=== PATIENT | male | born 1940 | race Caucasian/White ===

== ENCOUNTER → 2018-10-04 09:19 | Outpatient (CLI) | payer MEDICARE, SELFPAY ==
--- NOTE | 2018-10-04 09:31 | XR_ITS ---
XR hip LT 2-3V w/pelvis HISTORY: Left-sided pain ITS.REASON: LOW BACK PAIN ORDERING PHYSICIAN: Lizette Jimenez PATIENT AGE: 78 years COMPARISON: None FINDINGS: There are mild osteoarthritic changes of the hips on both sides with some decrease in the joint space, osteophyte formation, and mild subarticular cystic changes along the acetabular roof. No fracture or dislocation. No lytic or blastic change. IMPRESSION: Mild osteoarthritis of the hips
--- NOTE | 2018-10-04 09:31 | XR_ITS ---
EXAM: XR lumbar spine 2-3V HISTORY: ITS.REASON: LOW BACK PAIN ORDERING PHYSICIAN: Lizette Jimenez PATIENT AGE: 78 years COMPARISON: None FINDINGS: There is minimal lumbar scoliosis convex right. There is mild degenerative disc disease from L1 to S1 with mildly prominent anterior osteophytes. No fracture or dislocation. Mild facet hypertrophic changes are present at L4-L5 and S1. Calcification noted over the mid aspect of the left kidney. This is nonspecific not quite as focal as what one would expect for nephrolithiasis. Partially calcified renal mass is a consideration. CT of the kidneys without and with contrast may be of further value. IMPRESSION: 1. Degenerative changes of the lumbar spine. 2. Nonspecific calcification of the mid aspect of the left kidney which may be better evaluate with CT of the kidneys without contrast
== END ==
PROVIDERS: PCP Nurse Practitioner Family; Visit Provider Nurse Practitioner Family
DX: M54.5 Low back pain (principal); M25.552 Pain in left hip
CPT/HCPCS: 72100; 73502

== ENCOUNTER → 2018-10-25 12:59 | Outpatient (CLI) | payer MEDICARE, SELFPAY ==
[2018-10-25 14:08] LABS: Blood Urea Nitrogen 21 mg/dL (7-18); Creatinine,Serum 1.23 mg/dL (0.70-1.30); Estimated Glomerular Filt Rate 57 ml/min (>60); GFR (African American) 69 ML/MIN (>60)
== END ==
PROVIDERS: Visit Provider Nurse Practitioner Family
DX: Z01.818 Encounter for other preprocedural examination (principal)
CPT/HCPCS: 36415; 82565; 84520

== ENCOUNTER → 2018-10-26 10:11 | Outpatient (CLI) | payer MEDICARE, SELFPAY ==
--- NOTE | 2018-10-26 10:16 | CT_ITS ---
CT abdomen w con CLINICAL INDICATION: ITS.REASON: LT KIDNEY NEOPLASM possible calcific mass of the left kidney ORDERING PHYSICIAN: Lizette Jimenez PATIENT AGE: 78 years COMPARISON: 10/04/2018 TECHNIQUE: Axial images obtained with sagittal and coronal reformats. All CT scans at the facility use one or more dose reduction, viz: automated exposure control, ma/kV adjustment per patient size (including targeted exams where dose is matched to indication, i.e. head), or iterative reconstruction technique. PROCEDURE: Oral Contrast: None IV Contrast: 75 mL's Optiray 350. FINDINGS: 3 phase imaging performed of the kidneys following contrast enhancement. Lower thorax: No acute finding The liver, spleen, adrenal glands, and pancreas have an unremarkable appearance. On the recent plain film of the lumbar spine there is a question of a calcific lesion of the left kidney. No renal mass or calculi is evident. The density noted on the radiograph may have been due to overlying artifact There is fusion of the SI joints and there are prominent hypertrophic changes of the lower thoracic and lumbar spine. No acute bony anomalies. There is a small focal hernia which contains fat. IMPRESSION: Essentially negative CT of the abdomen with 3 phase imaging of the kidneys. No renal mass or calcification/stone apparent.
--- NOTE | 2018-10-26 10:54 | HMH.ITSHM ---
Current Home Medications as stated by this patient Emmanuel Guerrero or compliance representative dealer. []IRBESARTIN,METOPROLOL
== END ==
PROVIDERS: PCP Nurse Practitioner Family; Visit Provider Nurse Practitioner Family
DX: D41.02 Neoplasm of uncertain behavior of left kidney (principal)
CPT/HCPCS: 74160; Q9967

== ENCOUNTER 2018-11-07 09:00 | Outpatient (RCR) | payer MEDICARE, SELFPAY | END 2018-11-07 09:05 | disposition home or self-care (01) | LOC: PT 09:00 | PROVIDERS: Visit Provider Nurse Practitioner Family | DX: M54.5 Low back pain (principal) | CPT/HCPCS: 97010; 97012; 97014; 97110; 97163; G0283 ==

== ENCOUNTER → 2020-09-15 14:41 | Outpatient (CLI) | payer OTHER, SELFPAY ==
--- NOTE | 2020-09-15 14:52 | XR_ITS ---
PROCEDURE: XR LUMBAR SPINE MIN 4V CLINICAL INDICATION: LUMBAGO W/ RT SCIATICA COMPARISON: CR SPLUMBLM XR lumbar spine 2-3V from 10/04/2018 FINDINGS: Mild lumbar scoliosis convex right. There is degenerative disc disease from L1-S1 worse at the L3-L4 level. There are bridging osteophytes anteriorly at T12-L1 L1-L2 L2-L3 and L4-5. Small posterior osteophyte noted at L3-L4. There are facet arthritic changes at L4-L5 and S1. No fracture or dislocation. No lytic or blastic change. There is some mild SI joint sclerosis in the mid aspect on both sides. There is overall no significant change compared to 10/04/2018. Other findings:None. IMPRESSION: Degenerative changes as described above. Dictated by: Praful Carrasco MD 09/15/2020 15:21 Praful Carrasco MD in [place] 09/15/2020 15:21
== END ==
PROVIDERS: PCP Internal Medicine; Visit Provider Internal Medicine
DX: M54.41 Lumbago with sciatica, right side (principal)
CPT/HCPCS: 72110

== ENCOUNTER → 2021-10-07 13:55 | Outpatient (CLI) | payer MEDICARE, SELFPAY ==
[2021-10-07 15:42] LABS: Alanine Aminotransferase 24 U/L (12-78); Albumin Level 4.2 g/dl (3.5-5.0); Albumin/Globulin Ratio 1.7 (1.1-1.8); Alkaline Phosphatase 110 U/L (38-126); Anion Gap 10.4 mEq/L (5-15); Aspartate Amino Transferase 37 U/L (17-59); Bilirubin,Total 0.7 mg/dl (0.2-1.3); Blood Urea Nitrogen 29 mg/dl (9-20); Carbon Dioxide 29 mmol/L (22.0-30.0); Chloride 104 mmol/L (98-107); Cholesterol 187 mg/dl (140-200); Estimated Glomerular Filt Rate 58 ml/min (>60); GFR (African American) 70 ML/MIN (>60); Globulin 2.5 g/dL (1.3-3.2); Glucose 85 mg/dl (74-100); HDL Cholesterol 31 mg/dl (40-60); Potassium 4.4 mmoL/L (3.5-5.1); Sodium 139 mmol/L (136-145); Total Protein,Serum 6.7 g/dl (6.3-8.2); Triglycerides 131 mg/dl (30-150); VLDL Cholesterol 26 mg/dL (0-40)
[2021-10-07 16:12] LABS: Prostate Specific Ag Screen 1.7 ng/ml (0.0-4.0)
== END ==
PROVIDERS: PCP Internal Medicine; Visit Provider Internal Medicine
DX: I10 Essential (primary) hypertension (principal); Z12.5 Encounter for screening for malignant neoplasm of prostate; E78.5 Hyperlipidemia, unspecified; R53.83 Other fatigue; N40.1 Benign prostatic hyperplasia with lower urinary tract symptoms
CPT/HCPCS: 80053; 80061; G0103

== ENCOUNTER → 2022-03-15 13:26 | Outpatient (CLI) | payer MEDICARE, SELFPAY ==
[2022-03-15 14:23] LABS: Basophils # 0.1 K/mm3 (0-0.2); Basophils % 1.4 % (0.1-2.0); Eosinophils # 0.1 K/mm3 (0.0-0.4); Eosinophils % 1.7 % (0.1-12.0); Hematocrit 39.7 % (42.0-52.0); Lymphocytes # 1.5 K/mm3 (0.7-4.5); Mean Corpuscular HGB Conc 32.7 g/dL (31.8-35.4); Mean Corpuscular Hemoglobin 33.4 pg (27.0-31.2); Mean Platelet Volume 11.6 fl (7.4-10.4); Monocytes # 0.4 K/mm3 (0.1-1.0); Monocytes % 6.7 % (1.7-9.3); Neutrophils # 3.2 K/mm3 (1.8-7.8); Neutrophils % 61.3 % (37.0-80.0); Platelet Count 179 K/mm3 (142-424); Red Blood Count 3.89 M/mm3 (4.60-6.20); Red Cell Distribution Width 13.9 % (11.5-17.5); White Blood Count 5.2 K/mm3 (4.8-10.8)
[2022-03-15 15:48] LABS: Erythrocyte Sedimentation Rate 31 mm/hr (0-20)
[2022-03-15 16:15] LABS: Alanine Aminotransferase 29 U/L (12-78); Albumin Level 4.1 g/dl (3.5-5.0); Albumin/Globulin Ratio 1.5 (1.1-1.8); Alkaline Phosphatase 133 U/L (38-126); Anion Gap 11.5 mEq/L (5-15); Aspartate Amino Transferase 43 U/L (17-59); Bilirubin,Total 0.6 mg/dl (0.2-1.3); Blood Urea Nitrogen 27 mg/dl (9-20); Carbon Dioxide 25 mmol/L (22.0-30.0); Chloride 106 mmol/L (98-107); Chol/HDL Ratio 4.9 (1-3.5); Cholesterol 173 mg/dl (140-200); Estimated Glomerular Filt Rate 53 ml/min (>60); GFR (African American) 64 ML/MIN (>60); Globulin 2.7 g/dL (1.3-3.2); Glucose 91 mg/dl (74-100); HDL Cholesterol 35 mg/dl (40-60); Potassium 4.5 mmoL/L (3.5-5.1); Sodium 138 mmol/L (136-145); Total Protein,Serum 6.8 g/dl (6.3-8.2); Triglycerides 89 mg/dl (30-150); VLDL Cholesterol 18 mg/dL (0-40)
[2022-03-15 16:45] LABS: Thyroid Stimulating Hormone 2.32 uIU/mL (0.465-4.68)
[2022-03-17 09:43] LABS: Direct LDL Cholesterol 115 mg/dL (100-129)
== END ==
PROVIDERS: PCP Internal Medicine; Visit Provider Internal Medicine
DX: R53.83 Other fatigue (principal); I10 Essential (primary) hypertension; E78.5 Hyperlipidemia, unspecified; M54.41 Lumbago with sciatica, right side
CPT/HCPCS: 80053; 80061; 84443; 85025; 85651

== ENCOUNTER → 2022-03-23 14:10 | Outpatient (CLI) | payer MEDICARE, SELFPAY ==
[2022-03-23 15:21] LABS: Reticulocyte % (Auto) 1.3 % (0.9-3.2)
[2022-03-23 16:35] LABS: Vitamin B12 866 pg/mL (239-931)
[2022-03-23 16:59] LABS: Folate > 20.00 ng/mL
== END ==
PROVIDERS: PCP Internal Medicine; Visit Provider Internal Medicine
DX: D75.89 Other specified diseases of blood and blood-forming organs (principal)
CPT/HCPCS: 82607; 82746; 85044

== ENCOUNTER → 2022-09-14 10:54 | Outpatient (CLI) | payer MEDICARE, SELFPAY ==
[2022-09-14 11:51] LABS: Basophils # 0.1 K/mm3 (0-0.2); Basophils % 1.1 % (0.1-2.0); Eosinophils # 0.1 K/mm3 (0.0-0.4); Eosinophils % 2.3 % (0.1-12.0); Hematocrit 42.3 % (42.0-52.0); Hemoglobin 13.6 g/dL (14.1-18.0); Lymphocytes # 1.7 K/mm3 (0.7-4.5); Lymphocytes % 29.2 % (10-50); Mean Corpuscular HGB Conc 32.2 g/dL (31.8-35.4); Mean Corpuscular Hemoglobin 31.7 pg (27.0-31.2); Mean Corpuscular Volume 98.4 fl (80-94); Mean Platelet Volume 9.8 fl (7.4-10.4); Monocytes # 0.4 K/mm3 (0.1-1.0); Monocytes % 6.4 % (1.7-9.3); Neutrophils # 3.5 K/mm3 (1.8-7.8); Neutrophils % 61.1 % (37.0-80.0); Platelet Count 191 K/mm3 (142-424); Red Cell Distribution Width 13.9 % (11.5-17.5); White Blood Count 5.7 K/mm3 (4.8-10.8)
[2022-09-14 12:05] LABS: Alanine Aminotransferase 32 U/L (12-78); Albumin Level 4.3 g/dl (3.5-5.0); Albumin/Globulin Ratio 1.6 (1.1-1.8); Alkaline Phosphatase 160 U/L (38-126); Anion Gap 6.9 mEq/L (5-15); Aspartate Amino Transferase 42 U/L (17-59); Bilirubin,Total 0.6 mg/dl (0.2-1.3); Blood Urea Nitrogen 28 mg/dl (9-20); Calcium 8.6 mg/dl (8.4-10.2); Carbon Dioxide 29 mmol/L (22.0-30.0); Chloride 108 mmol/L (98-107); Estimated Glomerular Filt Rate 48 ml/min (>60); GFR (African American) 59 ML/MIN (>60); Globulin 2.7 g/dL (1.3-3.2); Glucose 88 mg/dl (74-100); Potassium 4.9 mmoL/L (3.5-5.1); Sodium 139 mmol/L (136-145)
== END ==
PROVIDERS: PCP Internal Medicine; Visit Provider Internal Medicine
DX: I10 Essential (primary) hypertension (principal); E78.5 Hyperlipidemia, unspecified; F41.9 Anxiety disorder, unspecified; G25.0 Essential tremor
CPT/HCPCS: 80053; 85025

== ENCOUNTER → 2023-03-14 11:06 | Outpatient (CLI) | payer MEDICARE, SELFPAY ==
--- NOTE | 2023-03-14 | CA_ITS ---
FINAL REPORT TECHNIQUE: Multiple transverse and longitudinal images were performed of the right femoral-popliteal deep venous system with augmentation and compression maneuvers. CLINICAL HISTORY: Right groin and thigh pain, bruise on medial prox thigh, 81 mg ASA COMPARISON: None FINDINGS: Right lower extremity duplex ultrasound demonstrates normal flow in the deep venous system. There is no abnormal echogenicity to suggest thrombus. There is normal compression and augmentation. IMPRESSION: No evidence of right DVT. Reviewed, Interpreted and Dictated by Leo Gutierrez MD Transcribed by Dottie Machado Authenticated and . [facility]
--- NOTE | 2023-03-14 11:15 | XR_ITS ---
FINAL REPORT CLINICAL HISTORY: pain in right hip since 03/09/2023 COMPARISON: None FINDINGS: Two views of the right femur were obtained. There is no acute fracture or dislocation. There is moderate narrowing of the right hip joint space. There is subchondral sclerosis. There is mild to moderate osteophyte formation at the hip joint margins. There is no evidence of avascular necrosis. No soft tissue abnormality is seen. IMPRESSION: Moderate hypertrophic changes of osteoarthritis of the right hip asymmetrically greater than on the left. Reviewed, Interpreted and Dictated by Leo Gutierrez MD Transcribed by Dottie Machado Authenticated and [facility]
--- NOTE | 2023-03-14 11:15 | XR_ITS ---
FINAL REPORT CLINICAL HISTORY: RT HIP AND GROIN PAIN COMPARISON: None FINDINGS: RIGHT HIP Two views of the right hip demonstrate no acute fracture or dislocation. There is moderate narrowing of the right hip joint space. There is subchondral sclerosis. There is mild to moderate osteophyte formation at the hip joint margins. There is no evidence of avascular necrosis. No soft tissue abnormality is seen. IMPRESSION: Moderate hypertrophic changes of osteoarthritis of the right hip asymmetrically greater than on the left. Reviewed, Interpreted and Dictated by Leo Gutierrez MD Transcribed by Dottie Machado Authenticated and [facility]
== END ==
PROVIDERS: PCP Internal Medicine; Visit Provider Internal Medicine
DX: M79.604 Pain in right leg (principal); M25.551 Pain in right hip; R10.30 Lower abdominal pain, unspecified
CPT/HCPCS: 73502; 73552; 93971

== ENCOUNTER → 2023-04-08 12:29 | Outpatient (CLI) | payer MEDICARE, SELFPAY ==
[2023-04-08 13:16] LABS: Basophils # 0.1 K/mm3 (0-0.2); Basophils % 0.7 % (0.1-2.0); Eosinophils # 0.1 K/mm3 (0.0-0.4); Hematocrit 44.7 % (42.0-52.0); Hemoglobin 13.9 g/dL (14.1-18.0); Lymphocytes % 30.4 % (10-50); Mean Corpuscular HGB Conc 31.2 g/dL (31.8-35.4); Mean Corpuscular Hemoglobin 31.1 pg (27.0-31.2); Mean Corpuscular Volume 99.8 fl (80-94); Mean Platelet Volume 10.9 fl (7.4-10.4); Monocytes # 0.4 K/mm3 (0.1-1.0); Monocytes % 6.8 % (1.7-9.3); Neutrophils # 3.9 K/mm3 (1.8-7.8); Neutrophils % 60.1 % (37.0-80.0); Platelet Count 168 K/mm3 (142-424); Red Blood Count 4.48 M/mm3 (4.60-6.20); Red Cell Distribution Width 13.5 % (11.5-17.5); White Blood Count 6.5 K/mm3 (4.8-10.8)
[2023-04-08 13:48] LABS: Alanine Aminotransferase 33 U/L (12-78); Albumin Level 4.3 g/dl (3.5-5.0); Albumin/Globulin Ratio 1.4 (1.1-1.8); Alkaline Phosphatase 129 U/L (38-126); Anion Gap 12.9 mEq/L (5-15); Aspartate Amino Transferase 38 U/L (17-59); Bilirubin,Total 0.6 mg/dl (0.2-1.3); Blood Urea Nitrogen 30 mg/dl (9-20); Calcium 9.2 mg/dl (8.4-10.2); Carbon Dioxide 30 mmol/L (22.0-30.0); Chloride 102 mmol/L (98-107); Cholesterol 186 mg/dl (140-200); Estimated Glomerular Filt Rate 48 ml/min (>60); GFR (African American) 58 ML/MIN (>60); Glucose 94 mg/dl (74-100); HDL Cholesterol 31 mg/dl (40-60); Potassium 4.9 mmoL/L (3.5-5.1); Sodium 140 mmol/L (136-145); Total Protein,Serum 7.3 g/dl (6.3-8.2); Triglycerides 166 mg/dl (30-150); VLDL Cholesterol 33 mg/dL (0-40)
[2023-04-08 13:59] LABS: Direct LDL Cholesterol 111.18 mg/dL (100-129)
[2023-04-08 14:19] LABS: Prostate Specific Ag Screen 1.6 ng/ml (0.0-4.0)
== END ==
PROVIDERS: PCP Internal Medicine; Visit Provider Internal Medicine
DX: G25.0 Essential tremor (principal); I10 Essential (primary) hypertension; Z12.5 Encounter for screening for malignant neoplasm of prostate; D75.89 Other specified diseases of blood and blood-forming organs
CPT/HCPCS: 80053; 80061; 85025; G0103

== ENCOUNTER → 2023-04-12 15:09 | Outpatient (CLI) | payer MEDICARE, SELFPAY ==
--- NOTE | 2023-04-12 15:15 | MR_ITS ---
PROCEDURE INFORMATION: Exam: MR Right Lower Extremity Joint Without Contrast; Hip Exam date and time: 04/12/2023 3:43 PM Age: 83 years old Clinical indication: Pain; Hip; Right; Additional info: Hip strain TECHNIQUE: Imaging protocol: Magnetic resonance imaging of the right lower extremity joint without contrast. Exam focused on the hip. Sequences: Coronal and axial large field of view sequences include the pelvis and both the left and right hips. Additional sagittal sequences are focused on the symptomatic hip. COMPARISON: 1. CR XR HIP RT 2-3V W/PELVIS 03/14/2023 11:18 AM 2. CR XR FEMUR RT 2V 03/14/2023 11:[address] abdomen w con 10/26/2018 10:23 AM FINDINGS: Limitations: Motion artifact. Bones/joints: A 0.9 cm crescentic focus of edema involving the subcortical bone of the posterosuperior femoral head with slight flattening of the posterior weightbearing surface suggests a subchondral insufficiency fracture (series 7/image 22). A small focus of osteonecrosis is in the differential diagnosis. There is moderate primary osteoarthritis of the bilateral hip joints. A moderate joint effusion involves the right hip. A mild joint effusion involves the contralateral left hip. Degenerative subchondral cystic changes involve the contralateral left femoral head-neck junction. In the contralateral left femoral head there is a 0.9 cm focus of fluid signal intensity on large [id number] STIR sequences (series 4/image 18, series 3/image 12) that has anteriorly located sclerosis on the large field of view T1 sequence (series 5/images 17-18). A small focus of osteonecrosis is favored. The sacroiliac joints are partially bridged by osteophytes. No evidence of osseous metastatic disease. Labrum: Degenerative tearing involves each hip labrum. TENDONS: Tendons of iliopsoas group: Unremarkable. No evidence of tear. Tendons of medial compartment of thigh: Unremarkable. No evidence of tear. Tendons of lateral rotators of hip: Unremarkable. No evidence of tear. Tendons of gluteal group: High-grade partial-thickness tearing involves the right gluteus minimus tendon. Soft tissues: Multifocal intramuscular feathery increased T2 signal involving the right hip adductor muscles suggests muscle strain (grade I muscle injury). Bowel: A 1.1 cm nodular density abutting the posterior wall of the rectum located approximately 5 cm proximal to the anal verge is indeterminate for stool contents versus a neoplastic nodule. Bladder: Diffuse bladder wall thickening suggests partial bladder outlet obstruction. Reproductive: The prostate is heterogeneously enlarged. IMPRESSION: 1. Subchondral insufficiency fracture versus focus of osteonecrosis involving the posterosuperior right femoral head with prominent surrounding intraosseous edema. If representing osteonecrosis, this would correspond to Ficat and Mira classification stage III. 2. Possible rectal nodule measuring 1.1 cm located 5 cm proximal to the anal verge versus murally adherent stool contents. Additional workup as indicated in a patient of this age. 3. Probable 0.9 cm focus of osteonecrosis in the contralateral left femoral head. 4. Moderate primary osteoarthritis of the bilateral hip joints. 5. Moderate right hip joint effusion. 6. High-grade partial-thickness tear of the right gluteus minimus tendon. 7. Multifocal low-grade muscle strain of the right hip adductor muscles (grade I muscle injuries). 8. Findings suggestive of partial bladder outlet obstruction by the heterogeneously enlarged prostate.
--- NOTE | 2023-04-12 15:15 | MR_ITS ---
PROCEDURE INFORMATION: Exam: MR Lumbar Spine Without Contrast Exam date and time: 04/12/2023 3:43 PM Age: 83 years old Clinical indication: Pain; Sciatica; Right TECHNIQUE: Imaging protocol: Magnetic resonance imaging of the lumbar spine without contrast. COMPARISON: CR XR LUMBAR SPINE MIN 4V 09/15/2020 2:54 PM FINDINGS: Bones/joints: No acute compression fracture is seen. There is minimal dextroconvex curvature of the lumbar spine. Minor retrolisthesis of L2 on L3 and L4 on L5 is also noted. Spinal cord: The conus medullaris terminates at the L1-L2 level. There is no evidence of arachnoiditis or cauda equina compression. L1-L2: No significant disc disease. No significant spinal stenosis or neural foraminal narrowing. L2-L3: There is mild diffuse circumferential disc bulging with a superimposed right foraminal and extraforaminal disc protrusion. Mild facet arthropathy and thickening of the ligamentum flavum is also present. This is causing mild spinal canal stenosis, moderate narrowing of the left subarticular recess, severe narrowing of the right subarticular recess, and moderate/severe bilateral foraminal stenosis. L3-L4: There is moderate diffuse circumferential disc bulging, moderate facet arthropathy, thickening of the ligamentum flavum, and congenitally shortened pedicles. This is causing moderate spinal canal stenosis, severe narrowing of the subarticular recesses, and moderate/severe bilateral foraminal stenosis. L4-L5: There is moderate diffuse circumferential disc bulging, moderate facet arthropathy, and thickening of the ligamentum flavum. This is causing moderate spinal canal stenosis, severe narrowing of the subarticular recesses, moderate right foraminal stenosis, and moderate/severe left foraminal stenosis. L5-S1: There is moderate diffuse circumferential disc bulging and severe facet arthropathy. This is causing moderate spinal canal stenosis, severe narrowing of the subarticular recesses, and moderate/severe bilateral foraminal stenosis. Soft tissues: Mild edema is present in the posterior paraspinous musculature near the lumbosacral junction. Mild subcutaneous edema in the lower back is also noted. IMPRESSION: Marked degenerative changes of the lumbar spine as discussed above
== END ==
PROVIDERS: PCP Internal Medicine; Visit Provider Internal Medicine
DX: M25.551 Pain in right hip (principal); S76.011A Strain of muscle, fascia and tendon of right hip, initial encounter; M54.31 Sciatica, right side; M70.71 Other bursitis of hip, right hip
CPT/HCPCS: 72148; 73721; 76376

== ENCOUNTER 2024-01-03 10:33 | Outpatient (CLI) | payer MEDICARE, SELFPAY ==
[2024-01-03 10:50] LABS: Basophils % 1.1 % (0.1-2.0); Eosinophils % 1.1 % (0.1-12.0); Hematocrit 40.7 % (42.0-52.0); Hemoglobin 13.2 g/dL (14.1-18.0); Lymphocytes # 0.9 K/mm3 (0.7-4.5); Lymphocytes % 22.7 % (10-50); Mean Corpuscular HGB Conc 32.3 g/dL (31.8-35.4); Mean Corpuscular Hemoglobin 32.9 pg (27.0-31.2); Mean Corpuscular Volume 101.6 fl (80-94); Monocytes # 0.3 K/mm3 (0.1-1.0); Neutrophils # 2.7 K/mm3 (1.8-7.8); Neutrophils % 68.2 % (37.0-80.0); Platelet Count 147 K/mm3 (142-424); Red Blood Count 4.01 M/mm3 (4.60-6.20); Red Cell Distribution Width 14.2 % (11.5-17.5); White Blood Count 3.9 K/mm3 (4.8-10.8)
[2024-01-03 11:50] LABS: Chloride 105 mmol/L (98-107); Potassium 4.3 mmoL/L (3.5-5.1); Sodium 139 mmol/L (136-145)
[2024-01-03 11:52] LABS: Alanine Aminotransferase 7 U/L (12-78); Aspartate Amino Transferase 42 U/L (17-59); Blood Urea Nitrogen 28 mg/dl (9-20); Estimated Glomerular Filt Rate 45 ml/min (>60); GFR (African American) 54 ML/MIN (>60)
[2024-01-03 11:53] LABS: Albumin Level 4.2 g/dl (3.5-5.0); Albumin/Globulin Ratio 1.6 (1.1-1.8); Alkaline Phosphatase 164 U/L (38-126); Anion Gap 11.3 mEq/L (5-15); Bilirubin,Total 0.4 mg/dl (0.2-1.3); Calcium 9.5 mg/dl (8.4-10.2); Carbon Dioxide 27 mmol/L (22.0-30.0); Chol/HDL Ratio 5.3 (1-3.5); Cholesterol 164 mg/dl (140-200); Globulin 2.7 g/dL (1.3-3.2); Glucose 96 mg/dl (74-100); HDL Cholesterol 31 mg/dl (40-60); Total Protein,Serum 6.9 g/dl (6.3-8.2); Triglycerides 128 mg/dl (30-150); VLDL Cholesterol 26 mg/dL (0-40)
== END 2024-01-03 23:59 | disposition home or self-care (01) ==
LOC: LAB.DROPOF 10:33
PROVIDERS: PCP Internal Medicine; Visit Provider Internal Medicine
DX: E78.5 Hyperlipidemia, unspecified (principal); I10 Essential (primary) hypertension; R74.8 Abnormal levels of other serum enzymes; R25.1 Tremor, unspecified
CPT/HCPCS: 80053; 80061; 85025

== ENCOUNTER 2024-04-27 13:21 | Outpatient (POV) | payer MEDICARE, SELFPAY ==
[2024-04-27 13:40] VITALS: BP 144/75; PULSE 79; RESP 18; TEMP 36.8; O2SAT 98; BMI 24.3
--- NOTE | 2024-04-27 15:42 | A.OFFVIS_ITS ---
HPI Data of Consult Patient: new to practice Consult date: 04/27/24 Requesting Physician: Garth Wray MD Primary Care Provider: Santos Westbrook MD Consult Narrative Reason for consult: Postherpetic neuralgia and postherpetic polyneuropathy History of present illness: Mr. Guerrero is a 84 year old male who developed a shingles rash approximately 6 weeks ago. 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 CC: Garth Wray MD [facility] Disclaimer: The information contained in this section may have been updated after the patient was seen, as this information can be updated by other users. Medical History Tremor High blood pressure Family History Other Arthritis Social History (Updated 04/27/24 @ 13:41 by Mary Dukes RN) Smoking Status: Never smoker alcohol intake: never substance use type: denies use current occupational status: retired Travel in the last 8 weeks: None household members: spouse housing: house marital status: Review of Systems Review of Systems Review of systems:: pertinent systems reviewed and negative unless documented below Meds Home Medications and Allergies Home Medications ?Medication ?Instructions ?Recorded ?Confirmed ?Type aspirin 81 mg tablet,delayed 81 mg PO DAILY 11/15/22 04/27/24 History release (Adult Low Dose Aspirin) cholecalciferol (vitamin D3) 50 50 mcg PO DAILY 11/15/22 04/27/24 History mcg (2,000 unit) capsule multivitamin (Daily Multi-Vitamin 1 tab PO DAILY 11/15/22 04/27/24 History tablet) zinc acetate 50 mg (zinc) capsule 50 mg PO DAILY 11/15/22 04/27/24 History (Galzin) amlodipine 2.5 mg tablet 2.5 mg PO DAILY 07/19/23 04/27/24 History primidone 50 mg tablet 25 mg (1/2 x 50 mg) PO HS For 01/03/24 04/27/24 Rx sleep and tremor #30 tabs hydrochlorothiazide 12.5 mg capsule 12.5 mg PO DAILY #90 caps 02/17/24 04/27/24 Rx irbesartan 300 mg tablet 300 mg PO DAILY #90 tabs 02/17/24 04/27/24 Rx lidocaine 5 % topical patch 2 patch topical DAILY #60 ea 04/11/24 04/27/24 Rx metoprolol succinate 50 mg 50 mg PO DAILY 04/11/24 04/27/24 History tablet,extended release 24 hr carbidopa ER 50 mg-levodopa 200 mg 1 tab PO BID #180 tabs 04/23/24 04/27/24 Rx tablet,extended release gabapentin 300 mg capsule 300 mg PO HS #30 caps 04/23/24 04/27/24 Rx hydrocodone 7.5 mg-acetaminophen 1 tab PO Q8H PRN pain #60 tabs 04/23/24 04/27/24 Rx 325 mg tablet New Prescriptions to Start Prescriptions: Allergies Allergy/AdvReac Type Severity Reaction Status Date / Time No Known Allergies Allergy Verified 04/27/24 13:45 Objective Vital signs: Temp Pulse Resp BP Pulse Ox O2 Del Method 98.2 F 79 18 144/75 H 98 Room Air 04/27/24 13:40 04/27/24 13:40 04/27/24 13:40 04/27/24 13:40 04/27/24 13:40 04/27/24 13:40 Assessment and Plan *Assessment and plan (1) Postherpetic neuralgia: Status: Acute Category: Medical Code(s): B02.29 - Other postherpetic nervous system involvement (2) Neuralgia of abdomen: Status: Acute Category: Medical Code(s): M79.2 - Neuralgia and neuritis, unspecified (3) Herpes zoster complicated: Status: Acute Category: Medical Code(s): B02.8 - Zoster with other complications Plan We will seek approval and plan on a peripheral nerve block to the T7-T8 dermatomal level on the right side. I have also told him increase his gabapentin to 300 mg 3 times a day. We will see him in our [place] office this for his peripheral nerve block. Will be a very aggressive about treating this with subsequent peripheral nerve blocks to help reduce his pain symptoms and help drying of the rash.
== END 2024-04-27 15:22 | disposition home or self-care (01) ==
LOC: SC.PAIN 13:22
PROVIDERS: PCP Internal Medicine; Visit Provider Anesthesiology
DX: B02.29 Other postherpetic nervous system involvement (principal); M79.2 Neuralgia and neuritis, unspecified; B02.8 Zoster with other complications
CPT/HCPCS: 99202; G0463

== ENCOUNTER 2024-04-28 16:38 | Emergency (ER) | payer MEDICARE, SELFPAY ==
[2024-04-28] VITALS (13 sets, daily range): BP systolic 113–149; BP diastolic 66–82; PULSE 54–87; RESP 16–18; TEMP 36.5–36.8; O2SAT 96–100; BMI 25.4
--- NOTE | 2024-04-28 17:21 | ED_ITS ---
Discharge Plan Disposition Chief Complaint: Abdominal Pain Prescriptions Prescriptions: No Action Galzin 50 mg (zinc) capsule 50 mg PO DAILY cholecalciferol (vitamin D3) 50 mcg (2,000 unit) capsule 50 mcg PO DAILY aspirin [Adult Low Dose Aspirin] 81 mg tablet,delayed release (DR/EC) 81 mg PO DAILY multivitamin [Daily Multi-Vitamin] Tablet 1 tab PO DAILY amlodipine 2.5 mg tablet 2.5 mg PO DAILY Patient Comments: TAKE ONE TABLET BY MOUTH EVERY DAY FOR BLOOD PRESSURE primidone 50 mg tablet 25 mg PO HS Qty: 30 1RF metoprolol succinate 50 mg tablet extended release 24 hr 50 mg PO DAILY Patient Comments: TAKE ONE TABLET BY MOUTH EVERY DAY lidocaine 5 % adhesive patch,medicated 2 patch topical DAILY Qty: 60 3RF Rx Instructions: leave on most painful area for up to 12 hrs carbidopa-levodopa 50-200 mg tablet extended release 1 tab PO BID Qty: 180 1RF gabapentin 300 mg capsule 300 mg PO HS Qty: 30 2RF hydrocodone-acetaminophen 7.5-325 mg tablet 1 tab PO Q8H PRN (Reason: pain) Qty: 60 0RF hydrochlorothiazide 12.5 mg capsule 12.5 mg PO DAILY Qty: 90 1RF irbesartan 300 mg tablet 300 mg PO DAILY Qty: 90 1RF Referrals Follow up/Referrals: Santos Westbrook MD [Primary Care Provider] - See instructions Instructions Patient Instructions: DI for Acute Abdominal Pain Print Language Print Language: Macedonian Discharge ED Provider: Clement De Luna [facility] General Chief complaint: Abdominal Pain Stated complaint: abdomin pain Mode of Arrival: Ambulatory Source of Information: Patient Time Seen by Provider: 04/28/24 17:20 Description of Symptoms (Recalled from Triage Doc. by RN): SEVERE ABD PAIN , STATES SHARP AND ACHING CONSTANT PAIN, STATES BM TODAY, DENIES DIARRHEA, LOSS OF APPETITE HEENT Symptoms (Recalled from RN notes): No Resp Symptoms (Recalled from RN notes): No Skin Symptoms (Recalled from RN notes): No MS Symptoms (Recalled from RN notes): No Functional Status (Recalled from RN notes): WNL History of Present Illness Provider Complaint: Pt reports that he has debilitating abdominal pain that has been going on for the last week. He reports that he had shingles several weeks ago and has finished his antiviral, steroids, and hydrocodone. He reports that he does continue to take Gabapentin. Pt states that he took medication earlier in the week to help him have a bowel movement and had good results the next morning. He reports that he has not been able to eat much and has only had a bowl of cereal today. Pt states that he has had 3 small bowel movement today. He states that he has diffuse abdominal pain, but feels it worse in the RUQ and it does radiate to his back. Discussed pt with Dr. De Luna and pt will be transferring to room 8 in the ER. Related Data Home Medications ?Medication ?Instructions ?Recorded ?Confirmed aspirin 81 mg tablet,delayed 81 mg PO DAILY 11/15/22 04/27/24 release (Adult Low Dose Aspirin) cholecalciferol (vitamin D3) 50 50 mcg PO DAILY 11/15/22 04/27/24 mcg (2,000 unit) capsule multivitamin (Daily Multi-Vitamin 1 tab PO DAILY 11/15/22 04/27/24 tablet) zinc acetate 50 mg (zinc) capsule 50 mg PO DAILY 11/15/22 04/27/24 (Galzin) amlodipine 2.5 mg tablet 2.5 mg PO DAILY 07/19/23 04/27/24 metoprolol succinate 50 mg 50 mg PO DAILY 04/11/24 04/27/24 tablet,extended release 24 hr Previous Rx's ?Medication ?Instructions ?Recorded primidone 50 mg tablet 25 mg (1/2 x 50 mg) PO HS For 01/03/24 sleep and tremor #30 tabs hydrochlorothiazide 12.5 mg capsule 12.5 mg PO DAILY #90 caps 02/17/24 irbesartan 300 mg tablet 300 mg PO DAILY #90 tabs 02/17/24 lidocaine 5 % topical patch 2 patch topical DAILY #60 ea 04/11/24 carbidopa ER 50 mg-levodopa 200 mg 1 tab PO BID #180 tabs 04/23/24 tablet,extended release gabapentin 300 mg capsule 300 mg PO HS #30 caps 04/23/24 hydrocodone 7.5 mg-acetaminophen 1 tab PO Q8H PRN pain #60 tabs 04/23/24 325 mg tablet Allergies Allergy/AdvReac Type Severity Reaction Status Date / Time No Known Allergies Allergy Verified 04/27/24 13:45 Worker's Comp Is this a Worker's Comp case?: No PFSH PFSH Disclaimer: The information contained in this section may have been updated after the patient was seen, as this information can be updated by other users. Medical History Tremor High blood pressure Family History Other Arthritis Social History (Updated 04/27/24 @ 13:41 by Mary Dukes RN) Smoking Status: Never smoker alcohol intake: never substance use type: denies use current occupational status: retired Travel in the last 8 weeks: None household members: spouse housing: house marital status: Medical Decision Making Medical Records Screening: Per USPSTF and CDC recommendations, given the prevalence of disease in our region, it is our hospital?s policy to screen for HIV and viral Hepatitis for all patients aged 18 and over and those with ongoing risk factors. Vital Signs: 04/28/24 17:00 Temperature 97.7 F Temperature Source Oral Pulse Rate [Left Radial] 86 Respiratory Rate 18 Blood Pressure [Left Arm] 132/72 Blood Pressure Mean [Left Arm] 92 02 Sat by Pulse Oximetry 97 Lab Data 04/28/24 17:49 04/28/24 17:49
--- NOTE | 2024-04-28 18:02 | ECG_ITS ---
APPROVED REPORT Exam: Resting ECG HR:66 bpm ECG Measurements Heart Rate 66 AXES DC 122 P 70 QRSd 100 QRS 42 QT 412 T 47 QTc 426 Conclusion Sinus rhythm Incomplete right bundle-branch block Electronically signed by : JOSÉ SHAY, 04/28/2024 22:50:28
--- NOTE | 2024-04-28 18:03 | XR_ITS ---
PROCEDURE INFORMATION: Exam: XR Chest Exam date and time: 04/28/2024 6:16 PM Age: 84 years old Clinical indication: Other: Severe epigastric pain TECHNIQUE: Imaging protocol: Radiologic exam of the chest. Views: 1 view. COMPARISON: ABDW CT abdomen w con 10/26/2018 10:23 AM FINDINGS: Lungs: Unremarkable. No consolidation. Pleural spaces: Unremarkable. No pleural effusion. No pneumothorax. Heart/Mediastinum: Unremarkable. No cardiomegaly. Bones/joints: Unremarkable. IMPRESSION: No acute findings.
[2024-04-28] MEDS: ONDANSETRON 4MG/2ML VIAL 4 MG IV (18:23)
[2024-04-28] MEDS: KETOROLAC 30MG/ML VIAL 15 MG IV (18:23)
[2024-04-28] MEDS: BELLADONNA ALKALOIDS 60 ML ML PO (18:23)
[2024-04-28 18:24] LABS: Albumin Level 4.4 g/dl (3.5-5.0); Chloride 104 mmol/L (98-107); Potassium 4.6 mmoL/L (3.5-5.1); Sodium 138 mmol/L (136-145)
[2024-04-28] MEDS: MORPHINE 4MG/ML SYRINGE 4 MG IV (18:24)
[2024-04-28 18:26] LABS: Basophils # 0.1 K/mm3 (0-0.2); Basophils % 0.7 % (0.1-2.0); Blood Urea Nitrogen 37 mg/dl (9-20); Creatinine Clearance Estimated 39 mL/min (50-200); Eosinophils # 0.1 K/mm3 (0.0-0.4); Eosinophils % 0.6 % (0.1-12.0); Estimated Glomerular Filt Rate 48 ml/min (>60); GFR (African American) 58 ML/MIN (>60); Hematocrit 37.3 % (42.0-52.0); Hemoglobin 12.3 g/dL (14.1-18.0); Lymphocytes # 1.6 K/mm3 (0.7-4.5); Lymphocytes % 15.8 % (10-50); Mean Corpuscular HGB Conc 32.9 g/dL (31.8-35.4); Mean Corpuscular Volume 97.2 fl (80-94); Mean Platelet Volume 8.7 fl (7.4-10.4); Monocytes # 0.4 K/mm3 (0.1-1.0); Monocytes % 4.5 % (1.7-9.3); Neutrophils # 7.7 K/mm3 (1.8-7.8); Neutrophils % 78.3 % (37.0-80.0); Platelet Count 351 K/mm3 (142-424); Red Blood Count 3.83 M/mm3 (4.60-6.20); Red Cell Distribution Width 14.5 % (11.5-17.5); White Blood Count 9.8 K/mm3 (4.8-10.8)
[2024-04-28 18:27] LABS: Alanine Aminotransferase 13 U/L (12-78); Albumin/Globulin Ratio 1.3 (1.1-1.8); Alkaline Phosphatase 139 U/L (38-126); Anion Gap 11.6 mEq/L (5-15); Aspartate Amino Transferase 45 U/L (17-59); Bilirubin,Total 0.8 mg/dl (0.2-1.3); Calcium 10.1 mg/dl (8.4-10.2); Carbon Dioxide 27 mmol/L (22.0-30.0); Chol/HDL Ratio 4.9 (1-3.5); Cholesterol 195 mg/dl (140-200); Globulin 3.5 g/dL (1.3-3.2); Glucose 123 mg/dl (74-100); HDL Cholesterol 40 mg/dl (40-60); Lipase 137 U/L (23-300); Total Protein,Serum 7.9 g/dl (6.3-8.2); Triglycerides 77 mg/dl (30-150); VLDL Cholesterol 15 mg/dL (0-40)
[2024-04-28 18:28] LABS: Activated Partial Thrombo Time 23.2 seconds (22.8-30.6)
--- NOTE | 2024-04-28 18:37 | ED_ITS ---
Discharge Plan Disposition Patient Disposition: Home, Self-Care Chief Complaint: Abdominal Pain Prescriptions Prescriptions: No Action Galzin 50 mg (zinc) capsule 50 mg PO DAILY cholecalciferol (vitamin D3) 50 mcg (2,000 unit) capsule 50 mcg PO DAILY aspirin [Adult Low Dose Aspirin] 81 mg tablet,delayed release (DR/EC) 81 mg PO DAILY multivitamin [Daily Multi-Vitamin] Tablet 1 tab PO DAILY amlodipine 2.5 mg tablet 2.5 mg PO DAILY Patient Comments: TAKE ONE TABLET BY MOUTH EVERY DAY FOR BLOOD PRESSURE primidone 50 mg tablet 25 mg PO HS Qty: 30 1RF metoprolol succinate 50 mg tablet extended release 24 hr 50 mg PO DAILY Patient Comments: TAKE ONE TABLET BY MOUTH EVERY DAY lidocaine 5 % adhesive patch,medicated 2 patch topical DAILY Qty: 60 3RF Rx Instructions: leave on most painful area for up to 12 hrs carbidopa-levodopa 50-200 mg tablet extended release 1 tab PO BID Qty: 180 1RF gabapentin 300 mg capsule 300 mg PO HS Qty: 30 2RF hydrocodone-acetaminophen 7.5-325 mg tablet 1 tab PO Q8H PRN (Reason: pain) Qty: 60 0RF hydrochlorothiazide 12.5 mg capsule 12.5 mg PO DAILY Qty: 90 1RF irbesartan 300 mg tablet 300 mg PO DAILY Qty: 90 1RF Referrals Follow up/Referrals: Santos Westbrook MD [Primary Care Provider] - See instructions Kayden Monge II, MD [Staff Physician] - See instructions Activity Restrictions/Add. Instructions Additional Instructions/Restrictions: Call your family doctor to establish care for this visit to the emergency department and schedule follow-up within 48 hours to ensure improvement. If you have any worsening of your condition or any other concerning signs or symptoms, return to the emergency department or your primary care doctor for further evaluation. Dr. Monge information here, call to schedule follow-up appointment. 2 capfuls of MiraLAX daily for 3 days followed by 1 capful daily thereafter to prevent constipation in the setting of narcotic use. Simethicone can help with gas pains. Clinical Impressions Clinical Impression: Abdominal pain Instructions Patient Instructions: DI for Acute Abdominal Pain Print Language Print Language: Romanian Discharge ED Provider: Clement De Luna General Adult HPI General Chief complaint: Abdominal Pain Stated complaint: abdomin pain Time Seen by Provider: 04/28/24 17:20 Mode of Arrival: Ambulatory Source of Information: Patient Limitations: No Limitations Description of Symptoms (Recalled from ER Triage Doc. by RN): SEVERE ABD PAIN , STATES SHARP AND ACHING CONSTANT PAIN, STATES BM TODAY, DENIES DIARRHEA, LOSS OF APPETITE History of Present Illness HPI narrative: Please note that above description of symptoms, in this electronic medical record under categorization of recalled from ER triage doctor by RN are reflective of an initial nursing assessment, however, is not reflective of my full history and physical exam that was personally taken and clarified. Consequentially, this preceding description of symptoms, which may include the patient's categorized chief complaint in the EMR, do not reflect my personal clinical impression, and the ultimate description of history of present illness and patient stated complaints should be deferred to this section of the note. Unless stated otherwise or congruent with this section of the note, additional signs, symptoms, or incongruence should be interpreted as inaccurate with my clinical impression. Related Data Home Medications ?Medication ?Instructions ?Recorded ?Confirmed aspirin 81 mg tablet,delayed 81 mg PO DAILY 11/15/22 04/27/24 release (Adult Low Dose Aspirin) cholecalciferol (vitamin D3) 50 50 mcg PO DAILY 11/15/22 04/27/24 mcg (2,000 unit) capsule multivitamin (Daily Multi-Vitamin 1 tab PO DAILY 11/15/22 04/27/24 tablet) zinc acetate 50 mg (zinc) capsule 50 mg PO DAILY 11/15/22 04/27/24 (Galzin) amlodipine 2.5 mg tablet 2.5 mg PO DAILY 07/19/23 04/27/24 metoprolol succinate 50 mg 50 mg PO DAILY 04/11/24 04/27/24 tablet,extended release 24 hr Previous Rx's ?Medication ?Instructions ?Recorded primidone 50 mg tablet 25 mg (1/2 x 50 mg) PO HS For 01/03/24 sleep and tremor #30 tabs hydrochlorothiazide 12.5 mg capsule 12.5 mg PO DAILY #90 caps 02/17/24 irbesartan 300 mg tablet 300 mg PO DAILY #90 tabs 02/17/24 lidocaine 5 % topical patch 2 patch topical DAILY #60 ea 04/11/24 carbidopa ER 50 mg-levodopa 200 mg 1 tab PO BID #180 tabs 04/23/24 tablet,extended release gabapentin 300 mg capsule 300 mg PO HS #30 caps 04/23/24 hydrocodone 7.5 mg-acetaminophen 1 tab PO Q8H PRN pain #60 tabs 04/23/24 325 mg tablet Allergies Allergy/AdvReac Type Severity Reaction Status Date / Time No Known Allergies Allergy Verified 04/27/24 13:45 [facility] Disclaimer: The information contained in this section may have been updated after the patient was seen, as this information can be updated by other users. Medical History Tremor High blood pressure Family History Other Arthritis Social History (Updated 04/27/24 @ 13:41 by Mary Dukes RN) Smoking Status: Never smoker alcohol intake: never substance use type: denies use current occupational status: retired Travel in the last 8 weeks: None household members: spouse housing: house marital status: Other Medical History Have you received the Flu Vaccine for this season: No Have you received the Pneumonia Vaccine: No ROS Obtained: Yes All systems reviewed & no additional complaints except as documented Physical Exam General General appearance: alert and in no apparent distress Head Head exam: atraumatic and normocephalic Eye Eye exam: Present normal appearance, PERRL and EOMI Neck Neck exam: Present normal inspection, full ROM and trachea midline Respiratory Respiratory exam: Absent respiratory distress, wheezes, stridor, accessory muscle use or prolonged expiratory phase Cardiovascular Cardiovascular exam: Present regular rate, normal rhythm and other (Pulses equal symmetric in upper and lower extremities) Abdominal Exam Abdominal exam: Present soft; Absent distention, tenderness, guarding, rebound, rigidity or pulsatile mass Extremities Exam Extremities exam: Absent edema Neurological Exam Neurological exam: Present alert, oriented X3, CN II-XII intact, normal gait and other (tremor); Absent motor sensory deficit Skin Skin exam: Present warm and dry; Absent diaphoresis or erythema Medical Decision Making Medical Records Medical records reviewed: Yes I reviewed the patient's medical records. Screening: Per USPSTF and CDC recommendations, given the prevalence of disease in our region, it is our hospital?s policy to screen for HIV and viral Hepatitis for all patients aged 18 and over and those with ongoing risk factors. Helder Inquiry Pt receiving controlled substance: No Helder was queried for this patient: No Vital Signs: 04/28/24 17:00 04/28/24 18:01 04/28/24 18:31 Temperature 97.7 F 98.3 F Temperature Source Oral Oral Pulse Rate 87 Pulse Rate [Left Radial] 86 75 Respiratory Rate 18 16 Blood Pressure 113/73 Blood Pressure [Left Arm] 132/72 149/79 H Blood Pressure Mean Blood Pressure Mean [Left Arm] 92 102 Blood Pressure Source [Left Arm] Automatic Cuff Blood Pressure Position [Left Arm] Sitting 02 Sat by Pulse Oximetry 97 98 96 Oxygen Delivery Method Room Air 04/28/24 19:08 04/28/24 19:10 04/28/24 19:30 Temperature Temperature Source Pulse Rate 74 71 Pulse Rate [Left Radial] Respiratory Rate Blood Pressure 148/82 H 125/66 Blood Pressure [Left Arm] Blood Pressure Mean Blood Pressure Mean [Left Arm] Blood Pressure Source [Left Arm] Blood Pressure Position [Left Arm] 02 Sat by Pulse Oximetry 100 97 97 Oxygen Delivery Method Room Air 04/28/24 20:00 04/28/24 20:17 04/28/24 20:30 Temperature Temperature Source Pulse Rate 68 Pulse Rate [Left Radial] Respiratory Rate Blood Pressure 131/71 136/74 Blood Pressure [Left Arm] Blood Pressure Mean 99 96 Blood Pressure Mean [Left Arm] Blood Pressure Source [Left Arm] Blood Pressure Position [Left Arm] 02 Sat by Pulse Oximetry 100 Oxygen Delivery Method Room Air Lab Data Lab Results 04/28/24 17:49: WBC 9.8, RBC 3.83 L, Hgb 12.3 L, Hct 37.3 L, MCV 97.2 H, MCH 32.0 H, MCHC 32.9, RDW 14.5, Plt Count 351, MPV 8.7, Neut % (Auto) 78.3, Lymph % (Auto) 15.8, [place] % (Auto) 4.5, Eos % (Auto) 0.6, Baso % (Auto) 0.7, Neut # (Auto) 7.7, Lymph # (Auto) 1.6, [place] # (Auto) 0.4, Eos # (Auto) 0.1, Baso # (Auto) 0.1, APTT 23.2, Sodium 138, Potassium 4.6, Chloride 104, Carbon Dioxide 27, Anion Gap 11.6, BUN 37 H, Creatinine 1.40 H, Estimated Creat Clear 39, E stimated GFR 48 L, Est GFR ( Amer) 58 L, Glucose 123 H, Hemoglobin A1c 6.0, Calcium 10.1, Total Bilirubin 0.8, AST 45, ALT 13, Alkaline Phosphatase 139 H, Troponin I < 0.01, Total Protein 7.9, Albumin 4.4, Globulin 3.5 H, Albumin/Globulin Ratio 1.3, Triglycerides 77, Cholesterol 195, LDL Cholesterol Direct 119.69, VLDL Cholesterol 15, HDL Cholesterol 40, Cholesterol/HDL Ratio 4.9 H, Lipase 137, HIV 1&2 Antibody Rapid Nonreactive 04/28/24 20:40: Urine Color Yellow, Urine Appearance Clear, Urine pH 5.5, Ur Specific [place] 1.010, Urine Protein Negative, Urine Glucose (UA) Negative, Urine Ketones Negative, Urine Blood Negative, Urine Nitrate Negative, Urine Bilirubin Negative, Urine Urobilinogen 0.2, Ur Leukocyte Esterase Negative, Urine RBC None, Urine WBC None, Ur Squamous Epith Cells Occasional, Urine Bacteria Trace 04/28/24 17:49 04/28/24 17:49 Orders (Tests/Meds): ED MEDICATIONS Generic Name Dose Route Start Last Admin Trade Name Freq PRN Reason Stop Dose Admin Sodium Chloride 10 ml 04/28/24 19:10 04/28/24 19:11 Sodium Chloride 0.9% 10ml Syr (Rad Only) IV 05/28/24 19:09 10 ml NEEDED PRN Administration Maintain IV Site Discontinued Medications Generic Name Dose Route Start Last Admin Trade Name Freq PRN Reason Stop Dose Admin Belladonna Alkaloids 60 ml 04/28/24 18:13 04/28/24 18:23 Belladonna Alkaloids 60 Ml Ml PO 04/28/24 18:14 60 ml ONCE ONE Administration Hydromorphone HCl 0.5 mg 04/28/24 21:01 04/28/24 21:10 Hydromorphone 2mg/Ml Syringe IV 04/28/24 21:02 0.5 mg ONCE ONE Administration Iopamidol 80 ml 04/28/24 19:10 04/28/24 19:11 Iopamidol-370 (76%);100ml Bottle IV 04/28/24 19:11 80 ml ONCE ONE Administration Ketorolac Tromethamine 15 mg 04/28/24 18:13 04/28/24 18:23 Ketorolac 30mg/Ml Vial IV 04/28/24 18:14 15 mg ONCE ONE Administration Morphine Sulfate 4 mg 04/28/24 18:13 04/28/24 18:24 Morphine 4mg/Ml Syringe IV 04/28/24 18:14 4 mg ONCE ONE Administration Ondansetron HCl 4 mg 04/28/24 18:13 04/28/24 18:23 Ondansetron 4mg/2ml Vial IV 04/28/24 18:14 4 mg ONCE ONE Administration Sodium Chloride 50 ml 04/28/24 19:10 04/28/24 19:11 0.9 % Sodium Chloride 50 Ml Vial IV 04/28/24 19:11 50 ml ONCE ONE Administration ORDERS Category Date Time Status CT angio abdomen pelvis Stat Cat Scan 04/28/24 18:41 Completed XR chest portable Stat Exams 04/28/24 18:03 Completed Complete Blood Count Auto Diff Stat Lab 04/28/24 17:49 Completed Comprehensive Metabolic Panel Stat Lab 04/28/24 17:49 Completed HIV (1&2) Antibody Rapid Stat Lab 04/28/24 17:49 Completed Hemoglobin A1C Stat Lab 04/28/24 17:49 Completed Hep C Ab with Reflex to RNA Stat Lab 04/28/24 17:49 Received Lactic Acid Stat Lab 04/28/24 18:03 Ordered Lipase Stat Lab 04/28/24 17:49 Completed Lipid Panel Stat Lab 04/28/24 17:49 Completed PTT [Activated Partial Thrombo Time] Stat Lab 04/28/24 17:49 Completed Troponin I Q3H Lab 04/28/24 21:15 Ordered Troponin I Q3H Lab 04/29/24 00:15 Ordered Troponin I Stat Lab 04/28/24 17:49 Completed Urinalysis and Microscopic Stat Lab 04/28/24 20:40 Completed Medical Decision Narrative: 84-year-old male 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 Patient states is been going on for about a week. No vomiting, diarrhea, constipation, blood in his stool, fevers, chills, weight loss, night sweats, or any other concerns. States that the abdominal pain is diffuse, does not radiate, no other associated symptoms. States that at this point its debilitating, and preventing him from wanting to eat, do anything or engage in daily activities. The only thing that makes it better is laying down flat on his back and not moving. Any movement seems to make it worse. History was obtained via conversation with patient. On arrival, patient hemodynamically stable, alert, oriented x4, appropriate, GCS 15, moving all extremities spontaneously, pupils equal and reactive to light. Full physical exam performed and significant for very well-appearing male who is in no acute distress. He does have a parkinsonian tremor. Normotensive, nontachycardic. Abdomen is soft, nontender on my exam and tenderness is not elicited on my exam or made worse. No flank tenderness. He does have overlying rash and skin changes on the right side of his abdomen consistent with recent diagnosis of herpes zoster. Cardiopulmonary exam normal. Differential includes pancreatitis, gastritis, enteritis, malignancy, diverticulitis, diverticular spasm, gastritis, PUD, malabsorption, constipation, UTI, nephrolithiasis, mesenteric ischemia, aortic pathology otherwise, among others Patient placed on continuous cardiac monitoring and continuous pulse ox with initial blood pressure 132/72, heart rate 86, saturation 100% on room air. Independent interpretation of EKG shows sinus rhythm 66 beats a minute with no ST or T wave changes concerning for ischemia. NC at 122, QRS 100, QTc 426. Incomplete right bundle branch block morphology. Patient was given Zofran, morphine, Toradol, GI cocktail for symptomatic management and correction of underlying abnormalities. Workup independently interpreted and significant for nonactionable CBC or chemistry. Coagulation study negative. Stable CKD with creatinine 1.4 and BUN 37. LFTs normal, troponin negative. Patient's lipase negative. Urinalysis nonactionable. On independent interpretation of imaging, no acute cardiopulmonary airspace disease on chest x-ray. CT angiogram of the abdomen and pelvis was independently interpreted and without acute intra- abdominal abnormality.. See radiology read for full review of final results. On reevaluation, patient resting at baseline on arrival. He states that his abdominal pain has not changed, still moderate to severe. Dilaudid was given. Given patient presentation, workup, history, this most likely represents referred visceral pain from herpes zoster. Could also be some other undiagnosed gastroenterology issue. Patient concerned it may be gas pains. Maalox and MiraLAX given I am concerned for constipation in the setting of opioid use. Because patient at baseline without signs or symptoms of clinical decompensation, deemed appropriate for discharge. Results were relayed to patient who voiced understanding and were agreeable to outpatient management and follow up. I discussed my clinical impression with patient and answered all questions. At this time, the evidence for any other entities in the differential is insufficient to warrant any further testing or ED observation. This was explained as well. Advisory was given that persistent or worsening symptoms require further evaluation. I confirmed the understanding of this discussion. Also given patient referral to gastroenterology for further evaluation. Waste Reduction Coordinator disclaimer Much of this encounter note is an electronic pin sorter and bagger spoken language to printed text. Electronic pin sorter and bagger of the spoken language may permit errors. Although I have reviewed the note, some errors may still exist. Critical Care Critical Care Time Critical Care Time: No
[2024-04-28 18:38] LABS: Direct LDL Cholesterol 119.69 mg/dL (100-129)
--- NOTE | 2024-04-28 18:41 | CT_ITS ---
PROCEDURE INFORMATION: Exam: CTA Abdomen and Pelvis With Contrast Exam date and time: 04/28/2024 7:05 PM Age: 84 years old Clinical indication: Abdominal pain; Generalized; Additional info: Food aversions, diffuse abd pain out of prop TECHNIQUE: Imaging protocol: Computed tomographic angiography of the abdomen and pelvis with contrast. Exam focused on the arteries. 3D rendering (Not supervised by radiologist): MIP and/or 3D reconstructed images were created by the technologist. Radiation optimization: All CT scans at this facility use at least one of these dose optimization techniques: automated exposure control; mA and/or kV adjustment per patient size (includes targeted exams where dose is matched to clinical indication); or iterative reconstruction. Contrast material: ISOVUE; Contrast volume: 80 ml; Contrast route: INTRAVENOUS (IV); COMPARISON: ABDW CT abdomen w con 10/26/2018 10:23 AM FINDINGS: Lungs: The visualized lung bases demonstrate no focal infiltrates. Aorta: No aortic aneurysm. No aortic dissection. Celiac trunk and mesenteric arteries: No occlusion or significant stenosis. Renal arteries: No occlusion or significant stenosis. Right iliac arteries: No occlusion or significant stenosis. Left iliac arteries: No occlusion or significant stenosis. Liver: The liver appears within normal limits. Gallbladder and biliary ducts: The gallbladder is normal. There is no evidence of biliary ductal dilation. Pancreas: The pancreas is normal. Spleen: The spleen is normal. Adrenal glands: The adrenal glands appear within normal limits. Kidneys and ureters: The kidneys are normal. Stomach and bowel: The stomach appears within normal limits. No wall thickening or inflammatory change. Appendix: No evidence of appendicitis. Intraperitoneal space: No free air. No evidence for focal fluid collection or ascites. No evidence for omental thickening. Lymph nodes: Unremarkable. No pathologically enlarged lymph nodes are identified. Urinary bladder: The bladder appears within normal limits. No wall thickening. Reproductive: The prostate gland appears normal. Bones/joints: No acute fracture. Soft tissues: Unremarkable. IMPRESSION: No acute abnormalities are identified.
[2024-04-28 18:46] LABS: Troponin I < 0.01 ng/ml (0.00-0.034)
[2024-04-28] MEDS: SODIUM CHLORIDE 0.9% 10ML SYR (RAD ONLY) 10 ML IV (19:11)
[2024-04-28] MEDS: IOPAMIDOL-370 (76%);100ML BOTTLE 80 ML IV (19:11)
[2024-04-28] MEDS: 0.9 % SODIUM CHLORIDE 50 ML VIAL IV (19:11)
[2024-04-28 20:08] LABS: HIV (1&2) Antibody Rapid NONREACTIVE (NONREACTIVE)
[2024-04-28 20:47] LABS: Microscopic, Urine URINE MICROSCOPIC (MICROSCOPIC)
[2024-04-28 20:48] LABS: Appearance,Urine CLEAR (Clear); Bilirubin,Urine Negative (Negative); Blood, Urine Negative (Negative); Color,Urine YELLOW (Yellow); Glucose,Urine (UA) Negative (Negative); Ketones,Urine Negative (Negative); Leukocyte Esterase,Urine Negative (Negative); Nitrate,Urine Negative (Negative); PH,Urine 5.5 (5.0-8.5); Protein,Urine Negative (Negative); Urobilinogen,Urine 0.2 EU/dl (0.2)
[2024-04-28 21:07] LABS: Bacteria,Urine Trace /lpf; Squamous Epithelial Cell,Urine Occasional #/hpf (0-5)
[2024-04-28] MEDS: HYDROMORPHONE 2MG/ML SYRINGE 0.5 MG IV (21:10)
[2024-04-28] MEDS: ALUMINUM/MAGNESIUM/SIMETHICONE 30ML UDC 30 ML PO (22:00)
[2024-04-28] MEDS: POLYETHYLENE GLYCOL 3350 17 GM PACKET PO (22:00)
[2024-05-01 05:09] LABS: HCV Ab Non Reactive (Non Reactive)
== END 2024-04-28 22:07 | disposition home or self-care (01) ==
LOC: UTC 16:51 → ER 17:52
PROVIDERS: Emergency Provider Emergency Medicine; PCP Internal Medicine
DX: R10.9 Unspecified abdominal pain (principal); R63.8 Other symptoms and signs concerning food and fluid intake
CPT/HCPCS: 71045; 74174; 80053; 80061; 81001; 83036; 83690; 84484; 85025; 85730; 86803; 87389; 93005; 96374; 96375; 99285; J1171; J1885; J2270; J2405; Q9967

== ENCOUNTER 2024-05-01 14:52 | Outpatient (CLI) | payer MEDICARE, SELFPAY ==
--- NOTE | 2024-05-01 14:56 | XR_ITS ---
FINAL REPORT CLINICAL HISTORY: Diffuse abdominal pain, bloating FINDINGS: A PA view of the chest was obtained. The mediastinum is unremarkable. The lungs are clear. There is no free air beneath the diaphragm. Upright and supine views of the abdomen reveal a nonspecific, nonobstructive bowel gas pattern. No abnormal calcifications are identified. IMPRESSION: No acute process. Reviewed, Interpreted and Dictated by Leo Gutierrez MD Transcribed by Elida Youngblood Authenticated and [facility]
== END 2024-05-01 23:59 | disposition home or self-care (01) ==
LOC: RAD 14:53
PROVIDERS: PCP Internal Medicine; Visit Provider Internal Medicine
DX: R14.0 Abdominal distension (gaseous) (principal); R10.9 Unspecified abdominal pain
CPT/HCPCS: 74021

== ENCOUNTER 2024-07-03 13:10 | Outpatient (CLI) | payer MEDICARE, SELFPAY ==
[2024-07-03 10:53] LABS: Basophils # 0.1 K/mm3 (0-0.2); Basophils % 1.3 % (0.1-2.0); Eosinophils # 0.1 K/mm3 (0.0-0.4); Eosinophils % 2.1 % (0.1-12.0); Hematocrit 37.3 % (42.0-52.0); Hemoglobin 12.2 g/dL (14.1-18.0); Lymphocytes # 1.7 K/mm3 (0.7-4.5); Lymphocytes % 29.7 % (10-50); Mean Corpuscular HGB Conc 32.8 g/dL (31.8-35.4); Mean Corpuscular Volume 103.6 fl (80-94); Mean Platelet Volume 9.7 fl (7.4-10.4); Monocytes # 0.4 K/mm3 (0.1-1.0); Monocytes % 6.4 % (1.7-9.3); Neutrophils # 3.5 K/mm3 (1.8-7.8); Neutrophils % 60.5 % (37.0-80.0); Platelet Count 179 K/mm3 (142-424); Red Cell Distribution Width 14.2 % (11.5-17.5); White Blood Count 5.7 K/mm3 (4.8-10.8)
[2024-07-03 11:36] LABS: Alanine Aminotransferase 6 U/L (12-78); Albumin Level 3.8 g/dl (3.5-5.0); Albumin/Globulin Ratio 1.7 (1.1-1.8); Alkaline Phosphatase 147 U/L (38-126); Anion Gap 8.9 mEq/L (5-15); Aspartate Amino Transferase 39 U/L (17-59); Bilirubin,Total 0.8 mg/dl (0.2-1.3); Blood Urea Nitrogen 27 mg/dl (9-20); Carbon Dioxide 30 mmol/L (22.0-30.0); Chloride 105 mmol/L (98-107); Chol/HDL Ratio 4.5 (1-3.5); Cholesterol 168 mg/dl (140-200); Estimated Glomerular Filt Rate 58 ml/min (>60); GFR (African American) 70 ML/MIN (>60); Globulin 2.3 g/dL (1.3-3.2); Glucose 87 mg/dl (74-100); HDL Cholesterol 37 mg/dl (40-60); Potassium 4.9 mmoL/L (3.5-5.1); Sodium 139 mmol/L (136-145); Total Protein,Serum 6.1 g/dl (6.3-8.2); Triglycerides 96 mg/dl (30-150); VLDL Cholesterol 19 mg/dL (0-40)
[2024-07-03 11:47] LABS: Direct LDL Cholesterol 110.85 mg/dL (100-129)
== END 2024-07-03 23:59 | disposition home or self-care (01) ==
LOC: LAB.DROPOF 13:11
PROVIDERS: PCP Internal Medicine; Visit Provider Internal Medicine
DX: E78.5 Hyperlipidemia, unspecified (principal); G25.0 Essential tremor; I10 Essential (primary) hypertension; B02.29 Other postherpetic nervous system involvement; G21.9 Secondary parkinsonism, unspecified; M16.11 Unilateral primary osteoarthritis, right hip; M47.817 Spondylosis without myelopathy or radiculopathy, lumbosacral region; M51.369 Other intervertebral disc degeneration, lumbar region without mention of lumbar back pain or lower extremity pain
CPT/HCPCS: 80053; 80061; 85025

== ENCOUNTER 2024-07-20 11:29 | Emergency (ER) | payer MEDICARE, SELFPAY ==
[2024-07-20 13:00] VITALS: BP 131/63; PULSE 66; RESP 20; TEMP 36.6; O2SAT 97; BMI 24.2
--- NOTE | 2024-07-20 13:54 | EXP.UTC ---
Discharge Plan Disposition Patient Disposition: Home, Self-Care Condition: Good Prescriptions Prescriptions: New azithromycin 250 mg tablet See Rx Instructions .ROUTE .COMPLEX Qty: 6 0RF Rx Instructions: For 250 mg dose pack: take 500 mg today (day 1), then 250 mg for 4 days (days 2-5) benzonatate 100 mg capsule 100 mg PO TID PRN (Reason: cough) Qty: 30 0RF No Action primidone 50 mg tablet 50 mg PO DAILY metoprolol succinate 50 mg tablet extended release 24 hr 50 mg PO DAILY Patient Comments: TAKE ONE TABLET BY MOUTH EVERY DAY carbidopa-levodopa 50-200 mg tablet extended release 1 tab PO DAILY amlodipine 2.5 mg tablet 2.5 mg PO DAILY Patient Comments: TAKE ONE TABLET BY MOUTH EVERY DAY hydrochlorothiazide 12.5 mg capsule 12.5 mg PO DAILY Patient Comments: TAKE ONE TABLET BY MOUTH EVERY DAY gabapentin 300 mg capsule 300 mg PO DAILY irbesartan 300 mg tablet 300 mg PO DAILY Referrals Follow up/Referrals: Santos Westbrook MD [Primary Care Provider] - See instructions Activity Restrictions/Add. Instructions Additional Instructions/Restrictions: Take medication as prescribed. Increase fluids and rest. Follow up with primary care provider next week. Clinical Impressions Clinical Impression: Acute lower respiratory infection Instructions Patient Instructions: Acute Bronchitis Print Language Print Language: Zambian Discharge ED Provider: Keyla Del Castillo [facility] General Stated complaint: congestion, cough Mode of Arrival: Ambulatory Source of Information: Patient Limitations: No Limitations Time Seen by Provider: 07/20/24 13:54 Description of Symptoms (Recalled from Triage Doc. by RN): PATIENT C/O NON-PRODUCTIVE COUGH AND CONGESTION X 1 WEEK HEENT Symptoms (Recalled from RN notes): Yes Resp Symptoms (Recalled from RN notes): Yes Skin Symptoms (Recalled from RN notes): No MS Symptoms (Recalled from RN notes): No Functional Status (Recalled from RN notes): WNL History of Present Illness Provider Complaint: Pt reports that he has had a dry cough since last Tuesday and now can't lay down without coughing a lot. He denies taking anything for his symptoms. is ill in the ER. Related Data Home Medications ?Medication ?Instructions ?Recorded ?Confirmed amlodipine 2.5 mg tablet 2.5 mg PO DAILY 07/20/24 07/20/24 carbidopa ER 50 mg-levodopa 200 mg 1 tab PO DAILY 07/20/24 07/20/24 tablet,extended release gabapentin 300 mg capsule 300 mg PO DAILY 07/20/24 07/20/24 hydrochlorothiazide 12.5 mg capsule 12.5 mg PO DAILY 07/20/24 07/20/24 irbesartan 300 mg tablet 300 mg PO DAILY 07/20/24 07/20/24 metoprolol succinate 50 mg 50 mg PO DAILY 07/20/24 07/20/24 tablet,extended release 24 hr primidone 50 mg tablet 50 mg PO DAILY 07/20/24 07/20/24 Previous Rx's ?Medication ?Instructions ?Recorded azithromycin 250 mg tablet See Rx Instructions PO .COMPLEX #6 07/20/24 tabs benzonatate 100 mg capsule 100 mg PO TID PRN cough #30 caps 07/20/24 Allergies Allergy/AdvReac Type Severity Reaction Status Date / Time No Known Allergies Allergy Verified 07/03/24 08:35 Worker's Comp Is this a Worker's Comp case?: No [facility] Disclaimer: The information contained in this section may have been updated after the patient was seen, as this information can be updated by other users. Medical History Shingles Tremor Tremor Plus , essential tremor with parkinsonian features. Poor response to beta-blockers, primidone, (unable to tolerate >50 mg po qhs due to increase daytime sleepiness) Exacerbation of tremor in the setting of multiple stressors. High blood pressure Surgical History No history of previous surgery Family History Other Arthritis Social History Smoking Status: Never smoker alcohol intake: never substance use type: denies use current occupational status: retired Travel in the last 8 weeks: None household members: spouse housing: house marital status: Have you lived/traveled outside [place] in past 30 days?: No Contact w/someone who lives/traveled outside [place] past 30 days?: No Exposure to someone with infectious disease in past 14 days?: No Do you have a fever (greater than 100.4 F or 38 C)?: No Have you tested positive for COVID-19: No Exposed to someone with COVID-19 in past 14 days?: No Do you have a sore throat?: No Do you have a cough?: Yes Do you have any weakness?: No Do you have any diarrhea?: No Are you experiencing any unusual bleeding?: No Do you have any muscle aches/pain?: No Do you have any abdominal pain?: No Are you experiencing loss of taste or smell?: No ROS Obtained: Yes All systems reviewed & no additional complaints except as documented Constitutional Constitutional: Reports system reviewed and no additional complaints, except as documented Eyes Eyes: Reports system reviewed and no additional complaints, except as documented ENT Ears, Nose, Mouth, and Throat: Reports system reviewed and no additional complaints, except as documented and Reports nasal discharge Cardiovascular Cardiovascular: Reports system reviewed and no additional complaints, except as documented Respiratory Respiratory: Reports system reviewed and no additional complaints, except as documented and Reports non-productive cough Gastrointestinal Gastrointestingal: Reports system reviewed and no additional complaints, except as documented Genitourinary Male Genitourinary: Reports system reviewed and no additional complaints, except as documented Musculoskeletal Musculoskeletal: Reports system reviewed and no additional complaints, except as documented Integumentary/Breasts Skin/Breast: Reports system reviewed and no additional complaints, except as documented Neurologic Neurologic: Reports system reviewed and no additional complaints, except as documented Endocrine Endocrine: Reports system reviewed and no additional complaints, except as documented Hematologic/Lymphatic Henatologic/Lymphatic: Reports system reviewed and no additional complaints, except as documented Allergic/Immunologic Allergic/Immunologic: Reports system reviewed and no additional complaints, except as documented Physical Exam General General appearance: alert and in no apparent distress Head Head exam: atraumatic and normocephalic Eye Eye exam: Present normal appearance ENT ENT exam: Present normal exam, normal oropharynx and mucous membranes moist Neck Neck exam: Present normal inspection; Absent lymphadenopathy Chest Chest inspection: Present normal inspection and symmetric chest wall rise Respiratory Respiratory exam: Present other (bilateral lower lobe crackles) Cardiovascular Cardiovascular exam: Present regular rate Abdominal Exam Abdominal exam: Present soft Back Exam Back exam: Present normal inspection Neurological Exam Neurological exam: Present alert and oriented X3 Psychiatric Psychiatric exam: Present normal affect and normal mood Skin Skin exam: Present warm, dry and intact Lymphatic Lymphatic Findings: no adenopathy Medical Decision Making Medical Records Screening: Per USPSTF and CDC recommendations, given the prevalence of disease in our region, it is our hospital?s policy to screen for HIV and viral Hepatitis for all patients aged 18 and over and those with ongoing risk factors. Helder Inquiry Pt receiving controlled substance: No Helder was queried for this patient: No Vital Signs: 07/20/24 13:00 Temperature 97.9 F Temperature Source Oral Pulse Rate [Left Brachial] 66 Respiratory Rate 20 Blood Pressure [Left Arm] 131/63 Blood Pressure Mean [Left Arm] 85 Blood Pressure Source [Left Arm] Automatic Cuff Blood Pressure Position [Left Arm] Sitting 02 Sat by Pulse Oximetry 97 Oxygen Delivery Method Room Air
[2024-07-20 14:10] VITALS: BP 131/63; PULSE 66; RESP 20; TEMP 36.6; O2SAT 97
== END 2024-07-20 14:13 | disposition home or self-care (01) ==
PROVIDERS: Emergency Provider Nurse Practitioner Family; PCP Internal Medicine
DX: J22 Unspecified acute lower respiratory infection (principal)
CPT/HCPCS: 99213; G0381

== ENCOUNTER 2025-01-01 09:10 | Outpatient (CLI) | payer MEDICARE, SELFPAY ==
[2025-01-01 15:23] LABS: Albumin Level 4.1 g/dl (3.5-5.0); Chloride 110 mmol/L (98-107)
[2025-01-01 15:24] LABS: Potassium 5.4 mmoL/L (3.5-5.1); Sodium 141 mmol/L (136-145)
[2025-01-01 15:26] LABS: Alanine Aminotransferase 7 U/L (12-78); Anion Gap 8.4 mEq/L (5-15); Aspartate Amino Transferase 35 U/L (17-59); Bilirubin,Total 0.7 mg/dl (0.2-1.3); Blood Urea Nitrogen 37 mg/dl (9-20); Carbon Dioxide 28 mmol/L (22.0-30.0); Estimated Glomerular Filt Rate 52 ml/min (>60); GFR (African American) 63 ML/MIN (>60)
[2025-01-01 15:27] LABS: Albumin/Globulin Ratio 1.7 (1.1-1.8); Alkaline Phosphatase 129 U/L (38-126); Calcium 9.5 mg/dl (8.4-10.2); Chol/HDL Ratio 4.8 (1-3.5); Cholesterol 181 mg/dl (140-200); Globulin 2.4 g/dL (1.3-3.2); Glucose 89 mg/dl (74-100); HDL Cholesterol 38 mg/dl (40-60); Total Protein,Serum 6.5 g/dl (6.3-8.2); Triglycerides 85 mg/dl (30-150); VLDL Cholesterol 17 mg/dL (0-40)
== END 2025-01-01 23:59 | disposition home or self-care (01) ==
LOC: LAB.DROPOF 01-02 10:27
PROVIDERS: PCP Internal Medicine; Visit Provider Internal Medicine
DX: E78.5 Hyperlipidemia, unspecified (principal); I10 Essential (primary) hypertension; G25.0 Essential tremor; G21.9 Secondary parkinsonism, unspecified
CPT/HCPCS: 80053; 80061